=== PATIENT | male | born 1975 | race Asian ===

== ENCOUNTER 2016-12-16 19:58 | Emergency (ER) | payer OTHER ==
--- NOTE | 2016-12-16 20:44 | UCPHY ---
H & P Patient Type: Established HPI/ROS: HPI CHIEF COMPLAINT: Fever, lesion on right hand, chills, muscle aches HISTORY OF PRESENT ILLNESS: This patient very pleasant 41-year-old male no significant medical history he does have eczema, presents here Urgent Care with redness and swelling and some drainage out of the lesion on the base of his right 3rd finger medial aspect. May be early cellulitis. States today he began having chills and muscle aches and fever to 102 at home. He has taken Tylenol Motrin for this. Presents to urgent care stating that he is concerned that the lesion on his right hand may be causing him to have a fever or something else is going on. He denies cough, sore throat, congestion, shortness of breath, abdominal pain, urinary symptoms his only complaint is fever to 102 at home as well as chills or muscle aches. No sick contacts. Past Medical History: Eczema Past Surgical History: Mediastinal mass removal Social History: Denies use of drugs alcohol tobacco products Family History: noncontributory ROS REVIEW OF SYSTEMS: A comprehensive 10 point review of systems is otherwise negative aside from elements mentioned in the history of present illness. Exam Constitutional triage nursing summary reviewed, vital signs reviewed, awake/ alert. noted to be 37.9 temperature. Eyes normal conjunctivae and sclera, EOMI, PERRLA. HENT normal inspection, atraumatic, moist mucus membranes, no epistaxis, neck supple/ no meningismus, no raccoon eyes. Respiratory clear to auscultation bilaterally, normal breath sounds, no respiratory distress, no wheezing. Cardiovascular rate normal, regular rhythm, no murmur, no edema, distal pulses normal. Gastrointestinal soft, non-tender, no rebound, no guarding, normal bowel sounds, no distension, no pulsatile mass. Genitourinary no CVA tenderness. Musculoskeletal no midline vertebral tenderness, full range of motion, no calf swelling, no tenderness of extremities, no meningismus, good pulses, neurovascularly intact. Skin right hand: Medial aspect 3rd digit there is an area of cellulitis, yellow crusting, no fluctuance, no drainage, no sausage digit no evidence of tendon involvement no and evidence of sausage digit flexor tenosynovitis, pink, warm, & dry, no rash, skin atraumatic. Neurologic awake, alert and oriented x 3, AAOx3, moves all 4 extremities equally, motor intact, sensory intact, CN II-XII intact, normal cerebellar, normal vision, normal speech. Psychiatric normal mood/affect. Heme/Lymph/Immune no lymphadenopathy. Differential Diagnosis: includes but is not limited to in a particular, viral illness, URI, influenza, cellulitis of the hand Medical Decision Making: plan for this patient is a 1000 mg Tylenol as he has a temperature here 37.9, p.o. challenge, influenza test, and antibiotics for infection on right hand. Re-evaluation: 2228: This patient noted to have a leukocytosis 16,000 however clinically on exam appears well nontoxic. Fever came down with Tylenol. Heart rate came down. Does not feel bad. There is no nidus of infection on exam except for his hand with placed on Keflex and Bactrim for this. He understands close follow-up with his primary care doctor however he feels worse with high fever vomiting worsening weakness does not feel well he needs return to the urgent care or emergency room. This includes high fever can't control, vomiting. Complete Keflex and Bactrim. Is unclear if this little area of cellulitis on his fingers actually causing to have a he fever and leukocytosis it could be possibility that something else is going on. Blood cultures have been pulled. Given that he appears well nontoxic vitals are stable I will allow her to go home however he understands strict return precautions he understands return immediately to the urgent care or emergency room if he feels worse high fever vomiting generalized weakness not doing well. I have also shot x-ray to make sure does have focal pneumonia he is not hypoxic is not having any shortness of breath he does have a congestion a little bit in the back of his throat. No throat pain. ED x-ray chest two view: I do not appreciate acute focal pneumonia there is some haziness throughout both lungs most likely viral. Prescription given for Keflex and Bactrim for right hand cellulitis. Follow up closely with his primary care doctor tomorrow return to the urgent care or emergency room if he has any worsening symptoms includes high fever, vomiting does not feel well. He understands at bedside understands call 24 hours for blood culture results. Source: Patient - Personal History Tetanus Vaccine Date: 2012 - Medical/Surgical History Hx Asthma: No Hx Chronic Respiratory Disease: No Hx Diabetes: Yes Hx Cardiac Disease: No Hx Renal Disease: No Hx Cirrhosis: No Hx Alcoholism: No Hx HIV/AIDS: No Hx Splenectomy or Spleen Trauma: No Other PMH: "none" - Family History Significant Family History: No pertinent family hx - Social History Smoking Status: Never smoked Constitutional: Initial Vital Signs Temperature (C) 37.2 C 12/16/16 22:43 Heart Rate 80 12/16/16 22:43 Respiratory Rate 18 12/16/16 22:43 Blood Pressure 135/74 H 12/16/16 22:43 O2 Sat (%) 97 12/16/16 22:43 O2 Delivery Mode Room Air Allergies/Adverse Reactions: No Known Allergies Allergy (Verified 07/07/14 10:07) Home Medications: Medication Instructions Recorded Cholecalciferol Vit D3 [Vitamin D3 4,000 units PO DAILY 11/13/14 (*)] [place]-3 Fatty Acids [Fish Oil 1000 1,000 mg PO DAILY 11/13/14 mg (*)] Omeprazole [Prilosec 20 mg] 20 mg PO DAILY PRN 11/13/14 Hydrocodone/APAP 5/325 [[place] 1 - 2 tab PO Q4 PRN #30 tab 11/22/14 5/325 (*)] Ondansetron HCl [Zofran] 4 mg PO Q4H PRN #30 tablet 11/22/14 Cephalexin [Keflex] 500 mg PO Q6H #28 cap 12/16/16 Sulfamethox/Tmp 800/160 mg 1 tab PO BID@1000,2200 #14 tab 12/16/16 [Bactrim Ds] Medical Decision Making - Data Points Laboratory Results: Laboratory Results 12/16/16 21:30 12/16/16 21:30 12/16/16 12/16/16 12/16/16 21:45 21:30 21:30 WBC 16.13 10^3/uL H 10^3/uL (3.80-9.50) RBC 5.84 10^6/uL 10^6/uL (4.40-6.38) Hgb 16.3 g/dL g/dL (13.7-17.5) Hct 48.3 % % (40.0-51.0) MCV 82.7 fL fL (81.5-99.8) MCH 27.9 pg pg (27.9-34.1) MCHC 33.7 g/dL g/dL (32.4-36.7) RDW 12.9 % % (11.5-15.2) Plt Count 173 10^3/uL 10^3/uL (150-400) MPV 11.3 fL fL (8.7-11.7) Neut % (Auto) 80.8 % H % (39.3-74.2) Lymph % (Auto) 10.2 % L % (15.0-45.0) [place] % (Auto) 8.1 % % (4.5-13.0) Eos % (Auto) 0.2 % L % (0.6-7.6) Baso % (Auto) 0.3 % % (0.3-1.7) Nucleat RBC Rel Count 0.0 % % (0.0-0.2) Absolute Neuts (auto) 13.03 10^3/uL H 10^3/uL (1.70-6.50) Absolute Lymphs (auto) 1.65 10^3/uL 10^3/uL (1.00-3.00) Absolute Monos (auto) 1.31 10^3/uL H 10^3/uL (0.30-0.80) Absolute Eos (auto) 0.03 10^3/uL 10^3/uL (0.03-0.40) Absolute Basos (auto) 0.05 10^3/uL 10^3/uL (0.02-0.10) Absolute Nucleated RBC 0.00 10^3/uL 10^3/uL (0-0.01) Immature Gran % 0.4 % % (0.0-1.1) Immature Gran # 0.06 10^3/uL 10^3/uL (0.00-0.10) ESR 8 MM/HR MM/HR (0-15) Sodium 137 mEq/L mEq/L (134-144) Potassium 3.8 mEq/L mEq/L (3.5-5.2) Chloride 99 mEq/L mEq/L (97-110) Carbon Dioxide 24 mEq/l mEq/l (22-31) Anion Gap 14 mEq/L mEq/L (8-16) BUN 11 mg/dL mg/dL (7-23) Creatinine 1.0 mg/dL mg/dL (0.7-1.3) Estimated GFR > 60 Glucose 91 mg/dL mg/dL (70-100) Calcium 9.6 mg/dL mg/dL (8.5-10.4) C-Reactive Protein Pending Urine Color YELLOW Urine Appearance CLEAR Urine pH 6.0 (5.0-7.5) Ur Specific [place] <= 1.005 (1.002-1.030) Urine Protein NEGATIVE (NEGATIVE) Urine Ketones NEGATIVE (NEGATIVE) Urine Blood NEGATIVE (NEGATIVE) Urine Nitrate NEGATIVE (NEGATIVE) Urine Bilirubin NEGATIVE (NEGATIVE) Urine Urobilinogen 0.2 EU EU (0.2-1.0) Ur Leukocyte Esterase NEGATIVE (NEGATIVE) Ur Culture Indicated? NOT INDICATED (NI) Urine Glucose NEGATIVE (NEGATIVE) Influenza Typ A,B (DFA) 12/16/16 20:40 WBC RBC Hgb Hct MCV MCH MCHC RDW Plt Count MPV Neut % (Auto) Lymph % (Auto) Humphreys % (Auto) Eos % (Auto) Baso % (Auto) Nucleat RBC Rel Count Absolute Neuts (auto) Absolute Lymphs (auto) Absolute Monos (auto) Absolute Eos (auto) Absolute Basos (auto) Absolute Nucleated RBC Immature Gran % Immature Gran # ESR Sodium Potassium Chloride Carbon Dioxide Anion Gap BUN Creatinine Estimated GFR Glucose Calcium C-Reactive Protein Urine Color Urine Appearance Urine pH Ur Specific [place] Urine Protein Urine Ketones Urine Blood Urine Nitrate Urine Bilirubin Urine Urobilinogen Ur Leukocyte Esterase Ur Culture Indicated? Urine Glucose Influenza Typ A,B (DFA) NEGATIVE FOR FLU (NEGATIVE) Medications Given: Discontinued Medications Acetaminophen (Tylenol) 1,000 mg PO EDNOW ONE Stop: 12/16/16 20:53 Last Admin: 12/16/16 21:03 Dose: 1,000 mg Cephalexin (Keflex 500 Mg Prepack#4) 1 btl TAKEHOME EDNOW ONE PRN Reason: Protocol Stop: 12/16/16 21:21 Last Admin: 12/16/16 21:59 Dose: 1 btl Cephalexin HCl (Keflex) 500 mg PO EDNOW ONE PRN Reason: Protocol Stop: 12/16/16 21:21 Last Admin: 12/16/16 21:59 Dose: 500 mg Trimethoprim/Sulfamethoxazole (Bactrim Ds) 1 ea PO EDNOW ONE PRN Reason: Protocol Stop: 12/16/16 21:21 Last Admin: 12/16/16 22:00 Dose: 1 ea Departure - Departure Disposition: Home, Routine, Self-Care Clinical Impression: Cellulitis of hand Fever Qualifiers: Fever type: unspecified Qualified Code(s): R50.9 - Fever, unspecified Condition: Good Instructions: Cellulitis (ED), Fever in Adults (ED) Additional Instructions: 1. Please make sure to drink lots of fluids stay well-hydrated 2. keep fever down with Tylenol Motrin. 3. return to the emergency room urgent care if you feel worse have high fever your vomiting do not feel. 4. You had a negative influenza here. 5. I have placed her on 2 antibiotics with a hand infection watch this closely make sure it is not getting worse. 6. please follow up with your primary care doctor tomorrow. 7. Please call about your blood culture results. 8. Your fever may not be coming from your hand infection it may be from something else. 9 You have no evidence of an infection in the urine or pneumonia. Prescriptions: Cephalexin [Keflex] 500 mg PO Q6H #28 cap Sulfamethox/Tmp 800/160 mg [Bactrim Ds] 1 tab PO BID@1000,2200 #14 tab - PQRS PQRS Measurement: n/a
[2016-12-16] MEDS ORDERED: ACETAMINOPHEN 325 MG TAB PO ONE (20:52)
[2016-12-16] MEDS ORDERED: SULFAMETHOX/TMP 800/160 MG 1 TAB PO ONE (21:20)
[2016-12-16] MEDS ORDERED: CEPHALEXIN 500MG PREPACK#4 BTL TAKEHOME ONE (21:20)
[2016-12-16] MEDS ORDERED: CEPHALEXIN 500 MG CAP PO ONE (21:20)
[2016-12-16 21:42] LABS: % IMMATURE GRANULYOCYTES 0.4 % (0.0-1.1); ABSOLUTE IMMATURE GRANULOCYTES 0.06 10^3/uL (0.00-0.10); ADD DIFF? NO; ADD MORPH? NO; ADD SCAN? NO; ATYPICAL LYMPHOCYTE FLAG 10 (0-99); FRAGMENT RBC FLAG 0 (0-99); HEMATOCRIT 48.3 % (40.0-51.0); HEMOGLOBIN 16.3 g/dL (13.7-17.5); LEFT SHIFT FLG 10 (0-99); LIPEMIA HEMOLYSIS FLAG 80 (0-99); MEAN CELL HEMOGLOBIN 27.9 pg (27.9-34.1); MEAN CELL HEMOGLOBIN CONCENTR. 33.7 g/dL (32.4-36.7); MEAN CELL VOLUME 82.7 fL (81.5-99.8); MEAN PLATELET VOLUME 11.3 fL (8.7-11.7); PLATELET CLUMPS FLAG 0 (0-99); PLATELET COUNT 173 10^3/uL (150-400); RED BLOOD CELL COUNT 5.84 10^6/uL (4.40-6.38); RED CELL DISTRIBUTION WIDTH 12.9 % (11.5-15.2)
[2016-12-16 21:49] LABS: COLOR YELLOW; LEUKOCYTE ESTERASE,URINE NEGATIVE (NEGATIVE); NITRITE,URINE NEGATIVE (NEGATIVE)
[2016-12-16 21:57] LABS: ANION GAP 14 mEq/L (8-16); CALCIUM 9.6 mg/dL (8.5-10.4); CARBON DIOXIDE 24 mEq/l (22-31); CHLORIDE 99 mEq/L (97-110); GLOMERULAR FILTRATION RATE > 60; GLUCOSE 91 mg/dL (70-100); POTASSIUM 3.8 mEq/L (3.5-5.2); SODIUM 137 mEq/L (134-144)
[2016-12-16 22:22] LABS: SEDIMENTATION RATE 8 MM/HR (0-15)
[2016-12-16 22:45] VITALS: BP 114/78; PULSE 101; RESP 20; TEMP 99.5; O2SAT 96
[2016-12-17 00:31] LABS: C-REACTIVE PROTEIN 56.7 mg/L (<10.0)
== END 2016-12-16 22:57 | disposition home or self-care (01) ==
LOC: CED 19:58
DX: L03.011 Cellulitis of right finger (principal); R50.9 Fever, unspecified
CPT/HCPCS: 71020-PO; 80048-PO; 81003-PO; 85025-PO; 85652-PO; 87400-PO; 96360-PO; 99214-PO; G0463-PO

== ENCOUNTER → 2017-08-06 | Outpatient (CLI) | payer OTHER | LOC: CIMAGING 08:17 | PROVIDERS: ATTEND Family Medicine | DX: E16.2 Hypoglycemia, unspecified (principal); E55.9 Vitamin D deficiency, unspecified; E78.5 Hyperlipidemia, unspecified; R07.89 Other chest pain | CPT/HCPCS: 71020-PO ==